=== PATIENT | male | born 1935 | race Caucasian/White ===

== ENCOUNTER 2016-12-19 08:56 | Observation (INO) | payer MEDICARE, OTHER, MEDICAID ==
[2016-12-19] MEDS ORDERED: Nitroglycerin 0.4 MG Tab.SL ONE (09:14)
[2016-12-19] MEDS ORDERED: Aspirin 81 MG Tab.Chew ONE (09:14)
[2016-12-19] MEDS ORDERED: Aspirin 81 MG Tab.Chew PO ONE (09:23)
[2016-12-19] MEDS ORDERED: Nitroglycerin 2% Oint 1 GM UD Packet TOP ONE (09:23)
[2016-12-19] MEDS ORDERED: Nitroglycerin 0.4 MG Tab.SL SL ONE (09:23)
--- NOTE | 2016-12-19 09:44 | EDM.PDOC ---
Addendum entered and electronically signed by Karan Gonzales PA 12/19/16 10:20 : Please use ER note as admission H and P Original Note: ED HPI GENERAL MEDICAL PROBLEM - General Chief Complaint: Chest Pain Stated Complaint: chest pain Time Seen by Provider: 12/19/16 09:15 Source of Information: Reports: Patient History Limitations: Reports: No Limitations - History of Present Illness INITIAL COMMENTS - FREE TEXT/NARRATIVE: 81 yo WM presents to ER with 1 week history of episodic chest pain. Pt reports his pain is left sided without radiation with associated shortness of breath. Pt with PMH of COPD and IDDM. Pt denies any diaphoresis, dizziness or nausea/ vomiting. Pt reports improvement with his chest pain after administration of nitro. Pt uses supplemental oxygen at home at 2L and is currently having increased oxygen demand at 3L with SaO2 of 94% Duration: Week(s): (1), Intermittent, Waxing/Waning Location: Reports: Chest Quality: Reports: Ache Severity: Mild Improves with: Reports: None Worsens with: Reports: None Associated Symptoms: Reports: Chest Pain, Cough, Shortness of Breath. Denies: cough w sputum, Fever/Chills, Nausea/Vomiting - Related Data Allergies Allergy/AdvReac Type Severity Reaction Status Date / Time metformin Allergy Cannot Verified 12/19/16 09:42 Remember Home Meds: Home Meds Citalopram [Citalopram HBr] 5 mg PO DAILY 10/30/13 [History] Esomeprazole [NexIUM] 40 mg PO BID 10/30/13 [History] Lovastatin 20 mg PO DAILY 10/30/13 [History] Tiotropium [Spiriva Handihaler] 1 puff INH DAILY 10/30/13 [History] amLODIPine [Norvasc] 5 mg PO DAILY 10/30/13 [History] Aspirin [Halfprin] 81 mg PO DAILY 11/05/13 [History] Fluticasone/Salmeterol [Advair 250-50] 1 puff INH BID 11/05/13 [History] Hydrocodone/Acetaminophen [Hydrocodon-Acetaminophn 10-325] 2 tab PO DAILY [History] Magnesium Oxide 400 mg PO BID 11/05/13 [History] Acetaminophen 2 tab PO Q6H PRN 03/07/14 [History] Cetirizine HCl [Zyrtec] 10 mg PO DAILY 03/07/14 [History] Dimethicone/Gly/Petrolat/Water [Cetaphil Moisturizing Cream] 1 applic TOP TU [History] Eucalyptus/Menthol [Menthol Cough Drops] 1 lozenge PO Q1H PRN 03/07/14 [History] Lactobacillus Acidophilus [Probiotic] 1 each PO BID 03/07/14 [History] Loperamide HCl [Imodium A-D] 2 mg PO ASDIRECTED PRN 03/07/14 [History] Losartan Potassium 25 mg PO DAILY 03/07/14 [History] Pregabalin [Lyrica] 100 mg PO TID 03/07/14 [History] Triamcinolone Acetonide [Kenalog 0.1% Oint] 1 applic TOP BID 03/07/14 [History] Albuterol Sulfate [Albuterol Sulfate HFA] 2 puff INH Q4H PRN 09/26/14 [History] Psyllium Husk 1 tsp PO Q48H 09/26/14 [History] Acetaminophen [Tylenol] 650 mg PO BID 05/30/15 [History] Albuterol/Ipratropium [DuoNeb 3.0-0.5 MG/3 ML] 3 ml INH Q6HR PRN 05/30/15 [ History] Diclofenac Sodium [Voltaren 1% Gel] 1 applic TOP BID PRN 05/30/15 [History] Ondansetron [Zofran ODT] 4 mg PO Q6H PRN 05/30/15 [History] Polyethylene Glycol 3350 [Miralax] 17 gm PO DAILY PRN 05/30/15 [History] Fish Oil/[place]-3 Fatty Acids [Fish Oil 1,000 MG] 1 gram PO DAILY 06/02/15 [ History] Ferrous Sulfate 325 mg PO BIDMEALS #60 tablet 06/03/15 [Rx] Insulin Glarg,Human.Rec.Analog [LantUS Solostar] 30 units SUBCUT BID pen [Rx] Levofloxacin 750 mg PO DAILY #7 tablet 06/03/15 [Rx] Past Medical History Other Genitourinary History: diverticulitis Other Neuro History: dementia Social & Family History - Tobacco Use Smoking Status *Q: Former Smoker Years of Tobacco use: 42 Used Tobacco, but Quit: Yes Month Tobacco Last Used: 1998 Second Hand Smoke Exposure: No - Alcohol Use Days Per Week of Alcohol Use: 0 - Recreational Drug Use Recreational Drug Use: No ED ROS GENERAL - Review of Systems Review Of Systems: See Below Constitutional: Reports: No Symptoms HEENT: Reports: No Symptoms Respiratory: Reports: Shortness of Breath, Cough Cardiovascular: Reports: Chest Pain Endocrine: Reports: No Symptoms GI/Abdominal: Reports: No Symptoms : Reports: No Symptoms Musculoskeletal: Reports: No Symptoms Skin: Reports: No Symptoms Neurological: Reports: No Symptoms Psychiatric: Reports: No Symptoms Hematologic/Lymphatic: Reports: No Symptoms Immunologic: Reports: No Symptoms ED EXAM, GENERAL - Physical Exam Exam: See Below Exam Limited By: No Limitations General Appearance: Alert, WD/WN, No Apparent Distress Nose: Normal Inspection, Normal Mucosa, No Blood Throat/Mouth: Normal Inspection, Normal Lips, Normal Teeth, Normal Gums, Normal Oropharynx, Normal Voice, No Airway Compromise Head: Atraumatic, Normocephalic Neck: Normal Inspection, Supple, Non-Tender, Full Range of Motion Respiratory/Chest: No Respiratory Distress, Lungs Clear, Normal Breath Sounds, No Accessory Muscle Use, Chest Non-Tender Cardiovascular: Normal Peripheral Pulses, Regular Rate, Rhythm, No Edema, No Gallop, No JVD, No Murmur, No Rub GI/Abdominal: Normal Bowel Sounds, Soft, Non-Tender, No Organomegaly, No Distention, No Abnormal Bruit, No Mass Back Exam: Normal Inspection, Full Range of Motion, NT Extremities: Normal Inspection, Normal Range of Motion, Non-Tender, Normal Capillary Refill, No Pedal Edema Neurological: Alert, Oriented, CN II-XII Intact, Normal Cognition, Normal Gait, Normal Reflexes, No Motor/Sensory Deficits Psychiatric: Normal Affect, Normal Mood Skin Exam: Warm, Dry, Intact, Normal Color, No Rash Lymphatic: No Adenopathy EKG INTERPRETATION EKG Date: 12/19/16 Time: 09:09 Rhythm: NSR Rate (beats/min): 60 [place]: normal P-wave: present QRS: normal ST-T: normal QT: normal Comparison: NA - no prior EKG Course - Vital Signs Last Recorded V/S: Last Vital Signs Temp 36.5 C 12/19/16 09:34 Pulse 61 12/19/16 09:34 Resp 16 12/19/16 09:34 BP 137/55 L 12/19/16 09:50 Pulse Ox 91 L 12/19/16 09:34 - Orders/Labs/Meds Orders: Active Orders 24 hr Category Date Time Status Patient Status Manage Transfer [TRANSFER] Routine ADT 12/19/16 10:06 Ordered Patient Status [ADT] Routine ADT 12/19/16 10:07 Ordered Bedrest Bathroom Privileges [RC] ASDIRECTED Care 12/19/16 10:07 Active Blood Glucose Check, Bedside [RC] QIDACANDBED Care 12/19/16 10:07 Active Cardiac Monitoring [RC] . DIRECTED Care 12/19/16 10:06 Active Cardiac Monitoring [RC] CONTINUOUS Care 12/19/16 10:08 Active EKG Documentation Completion [RC] ASDIRECTED Care 12/19/16 09:24 Active Oxygen Therapy [RC] PRN Care 12/19/16 10:07 Active Peripheral IV Care [RC] . DIRECTED Care 12/19/16 10:09 Active Pulse Oximetry [RC] CONTINUOUS Care 12/19/16 10:08 Active RT Aerosol Therapy [RC] ASDIRECTED Care 12/19/16 10:09 Active VTE/DVT Education [RC] PER UNIT ROUTINE Care 12/19/16 10:07 Active Vital Signs [RC] Q4H Care 12/19/16 10:07 Active 2 Gram Sodium Diet [DIET] Diet 12/19/16 Lunch Active Chest 2V [CR] Stat Exams 12/19/16 09:23 Taken BASIC METABOLIC PANEL,BMP [CHEM] AM Lab 12/20/16 05:11 Ordered CBC WITH AUTO DIFF [HEME] AM Lab 12/20/16 05:11 Ordered MAGNESIUM [CHEM] AM Lab 12/20/16 05:11 Ordered TROPONIN I [CHEM] AM Lab 12/20/16 05:11 Ordered TROPONIN I [CHEM] Routine Lab 12/19/16 14:00 Ordered TROPONIN I [CHEM] Timed Lab 12/19/16 18:00 Ordered TROPONIN I [CHEM] Timed Lab 12/19/16 22:00 Ordered Acetaminophen [Tylenol] Med 12/19/16 10:11 Ordered DOSE mg PO Q6H PRN Albuterol/Ipratropium [DuoNeb 3.0-0.5 MG/3 ML] Med 12/19/16 10:07 Active 3 ml NEB Q4H PRN Aspirin [Ecotrin] Med 12/20/16 09:00 Active 325 mg PO DAILY Cetirizine [ZyrTEC] Med 12/20/16 09:00 Active 10 mg PO DAILY Nitroglycerin [Nitro-Bid 2%] Med 12/19/16 10:13 Active 1 gm TOP Q6H PRN Sodium Chloride 0.9% [Syrex Flush] Med 12/19/16 10:07 Active 5 ml FLUSH Q8HR PRN Peripheral IV Insertion Adult [OM.PC] Routine Oth 12/19/16 10:07 Ordered Resuscitation Status Routine Resus Stat 12/19/16 10:07 Ordered EKG 12 Lead [EK] Routine Ther 12/19/16 09:23 Ordered Medication Orders Acetaminophen (Tylenol) mg PO Q6H PRN PRN Reason: Pain Albuterol/Ipratropium (Duoneb 3.0-0.5 Mg/3 Ml) 3 ml NEB Q4H PRN PRN Reason: Shortness Of Breath/wheezing Aspirin (Ecotrin) 325 mg PO DAILY CAT Cetirizine HCl (Zyrtec) 10 mg PO DAILY CAT Nitroglycerin (Nitro-Bid 2%) 1 gm TOP Q6H PRN PRN Reason: Chest Pain Sodium Chloride (Syrex Flush) 5 ml FLUSH Q8HR PRN PRN Reason: Keep Vein Open Labs: Laboratory Tests 12/19/16 12/19/16 Range/Units 09:25 09:25 WBC 8.2 (5.0-10.0) 10^3/uL RBC 4.17 L (4.50-6.00) 10^6/uL Hgb 12.2 L (13.0-17.0) g/dL Hct 37.5 L (40.0-52.0) % MCV 90.0 (82.0-92.0) fL MCH 29.3 (27.0-31.0) pg MCHC 32.6 (32.0-36.0) g/dL RDW 14.6 H (11.5-14.5) % Plt Count 144 L (150-300) 10^3/uL MPV 9.7 (7.4-10.4) fL Neut % (Auto) 74.8 H (50.0-70.0) % Lymph % (Auto) 8.8 L (20.0-40.0) % [place] % (Auto) 9.0 H (2.0-8.0) % Eos % (Auto) 6.4 H (1.0-3.0) % Baso % (Auto) 1.0 (0.0-1.0) % Neut # (Auto) 6.2 (2.5-7.0) 10^3/uL Lymph # (Auto) 0.7 L (1.0-4.0) 10^3/uL [place] # (Auto) 0.7 (0.1-0.8) 10^3/uL Eos # (Auto) 0.5 H (0.1-0.3) 10^3/uL Baso # (Auto) 0.1 (0.0-0.1) 10^3/uL Sodium 140 (136-145) mmol/L Potassium 5.3 (3.3-5.3) mmol/L Chloride 103 (98-115) mmol/L Carbon Dioxide 27.6 (21.0-32.0) mmol/L BUN 31 H (6-25) mg/dL Creatinine 1.80 H (0.51-1.17) mg/dL Est Cr Clr Drug Dosing TNP Estimated GFR (MDRD) 37 mL/min Glucose 290 H (70-110) mg/dL Calcium 9.0 (8.7-10.3) mg/dL CK-MB (CK-2) 2.00 (0.00-4.30) ng/mL Troponin I < 0.04 (0.00-0.070) ng/mL Meds: Medications Generic Name Dose Route Start Last Admin Trade Name Freq PRN Reason Stop Dose Admin Acetaminophen mg 12/19/16 10:11 Tylenol PO Q6H PRN Pain Albuterol/Ipratropium 3 ml 12/19/16 10:07 Duoneb 3.0-0.5 Mg/3 Ml NEB Q4H PRN Shortness Of Breath/wheezing Aspirin 325 mg 12/20/16 09:00 Ecotrin PO DAILY CAT Cetirizine HCl 10 mg 12/20/16 09:00 Zyrtec PO DAILY CAT Nitroglycerin 1 gm 12/19/16 10:13 Nitro-Bid 2% TOP Q6H PRN Chest Pain Sodium Chloride 5 ml 12/19/16 10:07 Syrex Flush FLUSH Q8HR PRN Keep Vein Open Discontinued Medications Generic Name Dose Route Start Last Admin Trade Name lEmira PRN Reason Stop Dose Admin Aspirin Confirm 12/19/16 09:14 12/19/16 09:31 Aspirin Administered 12/19/16 09:15 Not Given Dose 324 mg .ROUTE .STK-MED ONE Aspirin 324 mg 12/19/16 09:23 12/19/16 09:28 Aspirin PO 12/19/16 09:24 324 mg ONETIME ONE Administration Nitroglycerin Confirm 12/19/16 09:14 12/19/16 09:15 Nitrostat Administered 12/19/16 09:15 0.4 mg Dose Administration 0.4 mg .ROUTE .STK-MED ONE Nitroglycerin 1 gm 12/19/16 09:23 12/19/16 09:31 Nitro-Bid 2% TOP 12/19/16 09:24 1 gm ONETIME ONE Administration Nitroglycerin 0.4 mg 12/19/16 09:23 12/19/16 09:31 Nitrostat SL 12/19/16 09:24 Not Given ONETIME ONE - Radiology Interpretation Free Text/Narrative:: CXR- NAD; elevated right hemidiaphram Departure - Departure Time of Disposition: 10:15 Disposition: Refer to Observation Condition: fair Clinical Impression: Chest pain Qualifiers: Chest pain type: unspecified Qualified Code(s): R07.9 - Chest pain, unspecified Referrals: Ghada Castañeda MD [Primary Care Provider] - - My Orders Last 24 Hours: My Active Orders 12/19/16 09:23 Chest 2V [CR] Stat EKG 12 Lead [EK] Routine 12/19/16 09:24 EKG Documentation Completion [RC] ASDIRECTED 12/19/16 10:06 Patient Status Manage Transfer [TRANSFER] Routine Cardiac Monitoring [RC] . DIRECTED 12/19/16 10:07 Patient Status [ADT] Routine Bedrest Bathroom Privileges [RC] ASDIRECTED Blood Glucose Check, Bedside [RC] QIDACANDBED Oxygen Therapy [RC] PRN VTE/DVT Education [RC] PER UNIT ROUTINE Vital Signs [RC] Q4H Albuterol/Ipratropium [DuoNeb 3.0-0.5 MG/3 ML] 3 ml NEB Q4H PRN Sodium Chloride 0.9% [Syrex Flush] 5 ml FLUSH Q8HR PRN Peripheral IV Insertion Adult [OM.PC] Routine Resuscitation Status Routine 12/19/16 10:08 Cardiac Monitoring [RC] CONTINUOUS Pulse Oximetry [RC] CONTINUOUS 12/19/16 10:09 Peripheral IV Care [RC] . DIRECTED RT Aerosol Therapy [RC] ASDIRECTED 12/19/16 10:11 Acetaminophen [Tylenol] DOSE mg PO Q6H PRN 12/19/16 10:13 Nitroglycerin [Nitro-Bid 2%] 1 gm TOP Q6H PRN 12/19/16 14:00 TROPONIN I [CHEM] Routine 12/19/16 18:00 TROPONIN I [CHEM] Timed 12/19/16 22:00 TROPONIN I [CHEM] Timed 12/19/16 Lunch 2 Gram Sodium Diet [DIET] 12/20/16 05:11 BASIC METABOLIC PANEL,BMP [CHEM] AM CBC WITH AUTO DIFF [HEME] AM MAGNESIUM [CHEM] AM TROPONIN I [CHEM] AM 12/20/16 09:00 Aspirin [Ecotrin] 325 mg PO DAILY Cetirizine [ZyrTEC] 10 mg PO DAILY - Assessment/Plan Last 24 Hours: My Active Orders 12/19/16 09:23 Chest 2V [CR] Stat EKG 12 Lead [EK] Routine 12/19/16 09:24 EKG Documentation Completion [RC] ASDIRECTED 12/19/16 10:06 Patient Status Manage Transfer [TRANSFER] Routine Cardiac Monitoring [RC] . DIRECTED 12/19/16 10:07 Patient Status [ADT] Routine Bedrest Bathroom Privileges [RC] ASDIRECTED Blood Glucose Check, Bedside [RC] QIDACANDBED Oxygen Therapy [RC] PRN VTE/DVT Education [RC] PER UNIT ROUTINE Vital Signs [RC] Q4H Albuterol/Ipratropium [DuoNeb 3.0-0.5 MG/3 ML] 3 ml NEB Q4H PRN Sodium Chloride 0.9% [Syrex Flush] 5 ml FLUSH Q8HR PRN Peripheral IV Insertion Adult [OM.PC] Routine Resuscitation Status Routine 12/19/16 10:08 Cardiac Monitoring [RC] CONTINUOUS Pulse Oximetry [RC] CONTINUOUS 12/19/16 10:09 Peripheral IV Care [RC] . DIRECTED RT Aerosol Therapy [RC] ASDIRECTED 12/19/16 10:11 Acetaminophen [Tylenol] DOSE mg PO Q6H PRN 12/19/16 10:13 Nitroglycerin [Nitro-Bid 2%] 1 gm TOP Q6H PRN 12/19/16 14:00 TROPONIN I [CHEM] Routine 12/19/16 18:00 TROPONIN I [CHEM] Timed 12/19/16 22:00 TROPONIN I [CHEM] Timed 12/19/16 Lunch 2 Gram Sodium Diet [DIET] 12/20/16 05:11 BASIC METABOLIC PANEL,BMP [CHEM] AM CBC WITH AUTO DIFF [HEME] AM MAGNESIUM [CHEM] AM TROPONIN I [CHEM] AM 12/20/16 09:00 Aspirin [Ecotrin] 325 mg PO DAILY Cetirizine [ZyrTEC] 10 mg PO DAILY Assessment:: 1. chest pain 2. hypoxia Plan: 1. admit for obs to Dr Redmond 2. rule out cardiac ischemia 3. nitro/ASA 4. trop I Q4 x 4 5. supportive care- attempt to [place] oxygen to 2L as tolerated
[2016-12-19] MEDS ORDERED: Albuterol/Ipratropium 3.0-0.5 MG/3 ML Neb Soln NEB PRN (10:07)
[2016-12-19] MEDS ORDERED: Sodium Chloride 0.9% 5 ML Syringe FLUSH PRN (10:07)
[2016-12-19 10:12] LABS: CHLORIDE,CL 103 mmol/L (98-115); SODIUM,NA 140 mmol/L (136-145)
[2016-12-19] MEDS ORDERED: Nitroglycerin 2% Oint 1 GM UD Packet TOP PRN (10:13)
[2016-12-19] MEDS ORDERED: Acetaminophen 325 MG Tab PO PRN (10:30)
[2016-12-19] MEDS ORDERED: Atropine 0.1 MG/ML 10 ML Syringe IVPUSH PRN (11:27)
[2016-12-19] MEDS ORDERED: Nitroglycerin 0.4 MG Tab.SL SL PRN (11:27)
[2016-12-19] MEDS ORDERED: EPINEPHrine 1:10,000 1 MG/10 ML Syringe IVPUSH PRN (11:27)
[2016-12-19] MEDS ORDERED: Lidocaine 2% 100 MG/5 ML Syringe IVPUSH PRN (11:27)
[2016-12-19] MEDS ORDERED: Triamcinolone Acetonide 0.1% Oint 15 GM Tube TOP PRN (16:25)
[2016-12-19] MEDS ORDERED: Menthol 7.6 MG Sugar Free Lozenge PO PRN (16:25)
[2016-12-19] MEDS ORDERED: Non-Formulary Medication 1 Each (Menthol [Biofreeze] 1 APPLIC) TOP PRN (16:25)
[2016-12-19] MEDS ORDERED: Bisacodyl 5 MG Tab PO PRN (16:25)
[2016-12-19] MEDS ORDERED: tiZANidine 4 MG Tab PO PRN (16:25)
[2016-12-19] MEDS ORDERED: Acetaminophen/HYDROcodone 325-10 MG Tab PO PRN (16:25)
[2016-12-19] MEDS ORDERED: Albuterol HFA 18 Gm Inhaler INH PRN (16:25)
[2016-12-19] MEDS ORDERED: Albuterol/Ipratropium 3.0-0.5 MG/3 ML Neb Soln INH PRN (17:00)
[2016-12-19] MEDS ORDERED: amLODIPine 5 MG Tab PO SCH (17:30)
[2016-12-19] MEDS ORDERED: Oxybutynin 5 MG Tab.ER PO SCH (17:30)
[2016-12-19] MEDS ORDERED: Aspirin 325 MG Tab.EC PO SCH (17:30)
[2016-12-19] MEDS ORDERED: Lisinopril 10 MG Tab PO SCH (17:30)
[2016-12-19] MEDS ORDERED: Allopurinol 100 MG Tab PO SCH (17:30)
[2016-12-19] MEDS ORDERED: Docusate Sodium 100 MG Cap PO SCH (17:30)
[2016-12-19] MEDS ORDERED: Citalopram 20 MG Tab PO SCH (17:30)
[2016-12-19] MEDS ORDERED: Finasteride 5 MG Tab PO SCH (17:30)
[2016-12-19] MEDS ORDERED: Aspirin 81 MG Tab.EC PO SCH (17:30)
[2016-12-19] MEDS ORDERED: Acetaminophen/HYDROcodone 325-10 MG Tab PO SCH (17:30)
[2016-12-19] MEDS ORDERED: Cetirizine 10 MG Tab PO SCH (17:30)
[2016-12-19] MEDS ORDERED: Tamsulosin 0.4 MG Cap.ER PO SCH (17:30)
[2016-12-19] MEDS ORDERED: Insulin Aspart 100 Units/ML 3 ML Pen SUBCUT SCH (18:00)
[2016-12-19] MEDS: Polyethylene Glycol 3350 Powder 17 GM Packet PO SCH (18:30)
[2016-12-19] MEDS: Ferrous Sulfate 325 MG Tab PO SCH (18:30)
[2016-12-19] MEDS: Insulin Aspart 100 Units/ML 3 ML Pen SUBCUT SCH (19:04)
[2016-12-19] MEDS ORDERED: ALPHA LIPOIC ACID 300 MG PO SCH (21:00)
[2016-12-19] MEDS ORDERED: Magnesium Oxide 500 MG Tab PO SCH (21:00)
[2016-12-19] MEDS ORDERED: Insulin Aspart 100 Units/ML 3 ML Pen SUBCUT PRN (21:00)
[2016-12-19] MEDS: Fluticasone/Salmeterol 250-50 MCG Inhalation Powder 14/Diskus INH SCH (21:12)
[2016-12-19] MEDS: B.Bifidum/B.Longum/L.Acidophilus/L.Rhamnosus (Probiotic) Cap PO SCH (21:13)
[2016-12-19] MEDS: Gabapentin 100 MG Cap PO SCH (21:13)
[2016-12-19] MEDS: levETIRAcetam 500 MG Tab PO SCH (21:18)
[2016-12-20 06:43] VITALS: BP 146/56
[2016-12-20] MEDS ORDERED: Esomeprazole 40 MG Cap PO SCH (07:00)
[2016-12-20] MEDS: Insulin Aspart 100 Units/ML 3 ML Pen SUBCUT SCH (07:19)
[2016-12-20] MEDS: Fluticasone/Salmeterol 250-50 MCG Inhalation Powder 14/Diskus INH SCH ×2 (07:48→10:03)
[2016-12-20 08:01] LABS: CHLORIDE,CL 104 mmol/L (98-115); SODIUM,NA 142 mmol/L (136-145)
[2016-12-20] MEDS: Polyethylene Glycol 3350 Powder 17 GM Packet PO SCH (08:33)
[2016-12-20] MEDS: Ferrous Sulfate 325 MG Tab PO SCH (08:33)
[2016-12-20] MEDS: Gabapentin 100 MG Cap PO SCH (08:34)
[2016-12-20] MEDS: B.Bifidum/B.Longum/L.Acidophilus/L.Rhamnosus (Probiotic) Cap PO SCH (08:34)
--- NOTE | 2016-12-20 08:38 | PCM.DCSUM1 ---
Discharge Summary - Hospital Course Free Text/Narrative:: Christopher is discharged today from an overnight observation stay to rule out cardiac etiology for chest pain he was having. It was across his entire chest with associated SOB and some hypoxia. He is oxygen dependent, typically on 2L via [place] but he was requiring 4L initially upon arrival. He had CXR, EKG and labs , all of which were OK. Chest pain was relieved with nitroglycerin and so he was admitted for observation. He has negative troponins x 4 and had no further chest pain while hospitalized. Oxygen has been weaned back down to his baseline of 2L. Of note, his potassium was slightly elevated on today's labs and so will recheck that in 3 days. He is on lisinopril but no potassium supplementation. K+ was normal on admission labs yesterday. Will continue to administer lisinopril and as indicated, recheck BMP in 3 days. No other adjustments were made to his medications. He desires to go back to the [place] today. - Discharge Data Discharge Date: 12/20/16 Discharge Disposition: DC/Tfer to SNF 03 Condition: Good - Discharge Diagnosis/Problem(s) (1) Chest pain SNOMED Code(s): 55954977 ICD Code: R07.9 - CHEST PAIN, UNSPECIFIED Status: Acute Current Visit: Yes Qualifiers: Chest pain type: unspecified Qualified Code(s): R07.9 - Chest pain, unspecified (2) Hypoxemia SNOMED Code(s): 058459707 ICD Code: R09.02 - HYPOXEMIA Status: Acute Priority: High Current Visit : No (3) Hypertension SNOMED Code(s): 93021036 ICD Code: I10 - ESSENTIAL (PRIMARY) HYPERTENSION Status: Acute Current Visit: Yes (4) CKD (chronic kidney disease) SNOMED Code(s): 664826834 ICD Code: N18.9 - CHRONIC KIDNEY DISEASE, UNSPECIFIED Status: Chronic Current Visit: Yes (5) Diabetes mellitus SNOMED Code(s): 43778464 ICD Code: E11.9 - TYPE 2 DIABETES MELLITUS WITHOUT COMPLICATIONS Status: Chronic Current Visit: No (6) COPD (chronic obstructive pulmonary disease) SNOMED Code(s): 43285250 ICD Code: J44.9 - CHRONIC OBSTRUCTIVE PULMONARY DISEASE, UNSPECIFIED Status : Chronic Current Visit: Yes - Patient Instructions Diet: Diabetic Diet Activity: As Tolerated - Discharge Plan Home Medications: Home Meds Citalopram [Citalopram HBr] 20 mg PO DAILY 10/30/13 [History] Esomeprazole [NexIUM] 40 mg PO DAILY 10/30/13 [History] Lovastatin 20 mg PO DAILY 10/30/13 [History] amLODIPine [Norvasc] 10 mg PO DAILY 10/30/13 [History] Aspirin [Halfprin] 81 mg PO DAILY 11/05/13 [History] Fluticasone/Salmeterol [Advair 250-50] 1 puff INH BID 11/05/13 [History] Hydrocodone/Acetaminophen [Hydrocodon-Acetaminophn 10-325] 2 tab PO DAILY [History] Magnesium Oxide 400 mg PO BID 11/05/13 [History] Acetaminophen 2 tab PO Q6H PRN 03/07/14 [History] Cetirizine HCl [Zyrtec] 10 mg PO DAILY 03/07/14 [History] Eucalyptus/Menthol [Menthol Cough Drops] 1 lozenge PO Q1H PRN 03/07/14 [History] Lactobacillus Acidophilus [Probiotic] 1 each PO BID 03/07/14 [History] Pregabalin [Lyrica] 100 mg PO TID 03/07/14 [History] Triamcinolone Acetonide [Kenalog 0.1% Oint] 1 applic TOP BID PRN 03/07/14 [ History] Albuterol Sulfate [Albuterol Sulfate HFA] 2 puff INH Q4H PRN 09/26/14 [History] Psyllium Husk 1 tsp PO Q48H 09/26/14 [History] Albuterol/Ipratropium [DuoNeb 3.0-0.5 MG/3 ML] 3 ml INH Q6HR PRN 05/30/15 [ History] Polyethylene Glycol 3350 [Miralax] 17 gm PO BID@0800,1800 05/30/15 [History] Fish Oil/[place]-3 Fatty Acids [Fish Oil 1,000 MG] 1 gram PO DAILY 06/02/15 [ History] Ferrous Sulfate 325 mg PO BIDMEALS #60 tablet 06/03/15 [Rx] Allopurinol [Zyloprim] 200 mg PO DAILY 12/19/16 [History] Alpha Lipoic Acid 300 mg PO TID 12/19/16 [History] Bisacodyl 10 mg PO DAILY PRN 12/19/16 [History] Docusate Sodium [Colace] 100 mg PO DAILY 12/19/16 [History] Finasteride 5 mg PO DAILY 12/19/16 [History] Hydrocodone/Acetaminophen [Hydrocodon-Acetaminophn 10-325] 1 tab PO BID PRN 11/30 [History] Insulin Aspart [NovoLOG] See Protocol SUBCUT BID 12/19/16 [History] Lisinopril 10 mg PO DAILY 12/19/16 [History] Menthol [Biofreeze] 1 applic TOP BID PRN 12/19/16 [History] Multivitamin [Multi-Vitamin Daily] 1 each PO DAILY 12/19/16 [History] Oxybutynin [Oxybutynin ER] 5 mg PO DAILY 12/19/16 [History] Ranitidine HCl 150 mg PO DAILY 12/19/16 [History] Tamsulosin [Flomax] 0.4 mg PO DAILY 12/19/16 [History] Tresiba Flextouch Pen 200u/Ml 96 units SUBCUT DAILY 12/19/16 [History] Urea [Urevaz] 20 percent TOP TID 12/19/16 [History] levETIRAcetam [Keppra] 500 mg PO BID 12/19/16 [History] tiZANidine HCl [Tizanidine HCl] 4 mg PO TID PRN 12/19/16 [History] Other Amb Orders: BASIC METABOLIC PANEL,BMP [CHEM] Time Frame: 3 Days, Facility: [facility], Location: [facility] Referrals: Ghada Castañeda MD [Primary Care Provider] - - General Info Date of Service: 12/20/16 Admission Dx/Problem (Free Text: Chest pain - Review of Systems Systems Review Comment: 10 point ROS obtained, all pertinent positives listed in summary, all other systems are negative. - Patient Data Vitals - Most Recent: Last Vital Signs Temp 97.6 F 12/20/16 06:41 Pulse 60 12/20/16 06:41 Resp 18 12/20/16 06:41 BP 146/56 H 12/20/16 06:41 Pulse Ox 96 12/20/16 06:41 Weight - Most Recent: 244 lb 3.2 oz I&O - Last 24 hours: Intake & Output 12/19/16 12/20/16 12/20/16 22:59 06:59 14:59 Intake Total 300 100 Output Total 500 Balance 300 -400 Lab Results - Last 24 hrs: Laboratory Results - last 24 hr 12/19/16 12/19/16 12/19/16 Range/Units 12:01 13:55 17:32 WBC (5.0-10.0) 10^3/uL RBC (4.50-6.00) 10^6/uL Hgb (13.0-17.0) g/dL Hct (40.0-52.0) % MCV (82.0-92.0) fL MCH (27.0-31.0) pg MCHC (32.0-36.0) g/dL RDW (11.5-14.5) % Plt Count (150-300) 10^3/uL MPV (7.4-10.4) fL Neut % (Auto) (50.0-70.0) % Lymph % (Auto) (20.0-40.0) % [place] % (Auto) (2.0-8.0) % Eos % (Auto) (1.0-3.0) % Baso % (Auto) (0.0-1.0) % Neut # (Auto) (2.5-7.0) 10^3/uL Lymph # (Auto) (1.0-4.0) 10^3/uL [place] # (Auto) (0.1-0.8) 10^3/uL Eos # (Auto) (0.1-0.3) 10^3/uL Baso # (Auto) (0.0-0.1) 10^3/uL Sodium (136-145) mmol/L Potassium (3.3-5.3) mmol/L Chloride (98-115) mmol/L Carbon Dioxide (21.0-32.0) mmol/L BUN (6-25) mg/dL Creatinine (0.51-1.17) mg/dL Est Cr Clr Drug Dosing mL/min Estimated GFR (MDRD) mL/min Glucose (70-110) mg/dL POC Glucose 195 H 180 H (74-106) mg/dl Calcium (8.7-10.3) mg/dL Magnesium (1.8-2.4) mg/dL Troponin I < 0.04 (0.00-0.070) ng/mL 12/19/16 12/19/16 12/19/16 Range/Units 17:50 19:54 21:40 WBC (5.0-10.0) 10^3/uL RBC (4.50-6.00) 10^6/uL Hgb (13.0-17.0) g/dL Hct (40.0-52.0) % MCV (82.0-92.0) fL MCH (27.0-31.0) pg MCHC (32.0-36.0) g/dL RDW (11.5-14.5) % Plt Count (150-300) 10^3/uL MPV (7.4-10.4) fL Neut % (Auto) (50.0-70.0) % Lymph % (Auto) (20.0-40.0) % [place] % (Auto) (2.0-8.0) % Eos % (Auto) (1.0-3.0) % Baso % (Auto) (0.0-1.0) % Neut # (Auto) (2.5-7.0) 10^3/uL Lymph # (Auto) (1.0-4.0) 10^3/uL [place] # (Auto) (0.1-0.8) 10^3/uL Eos # (Auto) (0.1-0.3) 10^3/uL Baso # (Auto) (0.0-0.1) 10^3/uL Sodium (136-145) mmol/L Potassium (3.3-5.3) mmol/L Chloride (98-115) mmol/L Carbon Dioxide (21.0-32.0) mmol/L BUN (6-25) mg/dL Creatinine (0.51-1.17) mg/dL Est Cr Clr Drug Dosing mL/min Estimated GFR (MDRD) mL/min Glucose (70-110) mg/dL POC Glucose 207 H (74-106) mg/dl Calcium (8.7-10.3) mg/dL Magnesium (1.8-2.4) mg/dL Troponin I < 0.04 < 0.04 (0.00-0.070) ng/mL 12/20/16 12/20/16 12/20/16 Range/Units 06:30 07:25 07:25 WBC 8.6 (5.0-10.0) 10^3/uL RBC 4.07 L (4.50-6.00) 10^6/uL Hgb 11.8 L (13.0-17.0) g/dL Hct 36.6 L (40.0-52.0) % MCV 89.8 (82.0-92.0) fL MCH 29.1 (27.0-31.0) pg MCHC 32.4 (32.0-36.0) g/dL RDW 14.5 (11.5-14.5) % Plt Count 143 L (150-300) 10^3/uL MPV 9.6 (7.4-10.4) fL Neut % (Auto) 71.1 H (50.0-70.0) % Lymph % (Auto) 11.5 L (20.0-40.0) % [place] % (Auto) 10.0 H (2.0-8.0) % Eos % (Auto) 6.7 H (1.0-3.0) % Baso % (Auto) 0.7 (0.0-1.0) % Neut # (Auto) 6.0 (2.5-7.0) 10^3/uL Lymph # (Auto) 1.0 (1.0-4.0) 10^3/uL [place] # (Auto) 0.9 H (0.1-0.8) 10^3/uL Eos # (Auto) 0.6 H (0.1-0.3) 10^3/uL Baso # (Auto) 0.1 (0.0-0.1) 10^3/uL Sodium 142 (136-145) mmol/L Potassium 5.5 H (3.3-5.3) mmol/L Chloride 104 (98-115) mmol/L Carbon Dioxide 29.1 (21.0-32.0) mmol/L BUN 30 H (6-25) mg/dL Creatinine 1.66 H (0.51-1.17) mg/dL Est Cr Clr Drug Dosing 25.52 mL/min Estimated GFR (MDRD) 40 mL/min Glucose 106 (70-110) mg/dL POC Glucose 104 (74-106) mg/dl Calcium 9.2 (8.7-10.3) mg/dL Magnesium 2.0 (1.8-2.4) mg/dL Troponin I < 0.04 (0.00-0.070) ng/mL Med Orders - Current: Current Medications Acetaminophen (Tylenol) 650 mg PO Q6H PRN PRN Reason: Pain Hydrocodone Bitart/Acetaminophen ([place] 325-10 Mg) 1 tab PO BID PRN PRN Reason: Pain (moderate 4-6) Hydrocodone Bitart/Acetaminophen ([place] 325-10 Mg) 2 tab PO DAILY [facility] Albuterol (Ventolin Hfa) 0 gm INH Q4H PRN PRN Reason: Shortness of Breath Albuterol/Ipratropium (Duoneb 3.0-0.5 Mg/3 Ml) 3 ml NEB Q4H PRN PRN Reason: Shortness Of Breath/wheezing Albuterol/Ipratropium (Duoneb 3.0-0.5 Mg/3 Ml) 3 ml INH Q6HRRT PRN PRN Reason: Shortness of Breath Allopurinol (Zyloprim) 200 mg PO DAILY [facility] Amlodipine Besylate (Norvasc) 10 mg PO DAILY [facility] Aspirin (Ecotrin) 325 mg PO DAILY [facility] Last Admin: 12/19/16 17:57 Dose: Not Given Aspirin (Halfprin) 81 mg PO DAILY [facility] Last Admin: 12/19/16 17:58 Dose: Not Given Atropine Sulfate (Atropine 0.1 Mg/Ml) 0 mg IVPUSH ASDIRECTED PRN PRN Reason: Heart Bisacodyl (Dulcolax) 10 mg PO DAILY PRN PRN Reason: Constipation Cetirizine HCl (Zyrtec) 10 mg PO DAILY [facility] Citalopram Hydrobromide (Celexa) 20 mg PO DAILY [facility] Docusate Sodium (Colace) 100 mg PO DAILY [facility] Epinephrine HCl (Epinephrine 1:10,000) 1 mg IVPUSH ASDIRECTED PRN PRN Reason: Heart Esomeprazole Magnesium (Nexium) 40 mg PO ACBREAKFAST [facility] Last Admin: 12/20/16 06:16 Dose: Not Given Ferrous Sulfate (Ferrous Sulfate) 325 mg PO BIDMEALS [facility] Last Admin: 12/19/16 18:30 Dose: 325 mg Finasteride (Proscar) 5 mg PO DAILY [facility] Fish Oil (Fish Oil) 1 gm PO DAILY [facility] Gabapentin (Neurontin) 100 mg PO TID [facility] Last Admin: 12/19/16 21:13 Dose: 100 mg Insulin Aspart (Novolog) 0 unit SUBCUT BID@0730,1730 [facility] PRN Reason: Protocol Last Admin: 12/20/16 07:19 Dose: Not Given Lactobacillus Acidophilus/Rhamnosus (Multi-Stormy Plus) 1 cap PO BID [facility] Last Admin: 12/19/16 21:13 Dose: 1 cap Levetiracetam (Keppra) 500 mg PO BID [facility] Last Admin: 12/19/16 21:18 Dose: 500 mg Lidocaine HCl (Xylocaine 2%) 0 mg IVPUSH ASDIRECTED PRN PRN Reason: Heart Lisinopril (Prinivil) 10 mg PO DAILY [facility] Lovastatin (Mevacor) 20 mg PO DAILY [facility] Magnesium Oxide (Magnesium Oxide) 500 mg PO BID@1200,2100 [facility] Last Admin: 12/19/16 21:13 Dose: 500 mg Menthol ([place] Sugar Free) 1 desiree PO Q1H PRN PRN Reason: Cough Multivitamins/Minerals (Centrum) 1 tab PO DAILY [facility] Nitroglycerin (Nitro-Bid 2%) 1 gm TOP Q6H PRN PRN Reason: Chest Pain Last Admin: 12/19/16 17:11 Dose: 1 gm Nitroglycerin (Nitrostat) 0.4 mg SL ASDIRECTED PRN PRN Reason: Heart Oxybutynin Chloride (Oxybutynin Er) 5 mg PO DAILY [facility] Ptom Tresiba- Insulin Degludec 200u/Ml Pen Injector 96 each SUBCUT DAILY [facility] Polyethylene Glycol (Miralax) 17 gm PO BID@0800,1800 [facility] Last Admin: 12/19/16 18:30 Dose: 17 gm Ranitidine HCl (Zantac) 150 mg PO DAILY [facility] Fluticasone/Salmeterol (Advair Diskus 250-50) 1 puff INH BID [facility] Last Admin: 12/20/16 07:48 Dose: 1 puff Sodium Chloride (Syrex Flush) 5 ml FLUSH Q8HR PRN PRN Reason: Keep Vein Open Tamsulosin HCl (Flomax) 0.4 mg PO DAILY [facility] Tizanidine HCl (Zanaflex) 4 mg PO TID PRN PRN Reason: Muscle Spasm Triamcinolone Acetonide (Triamcinolone Acetonide 0.1% Oint) 0 gm TOP BID PRN PRN Reason: Rash Urea (Urea 20% Crm) 0 gm TOP TID [facility] Last Admin: 12/19/16 21:13 Dose: Not Given Discontinued Medications Hydrocodone Bitart/Acetaminophen ([place] 325-10 Mg) 2 tab PO DAILY [facility] Last Admin: 12/19/16 18:34 Dose: Not Given Allopurinol (Zyloprim) 200 mg PO DAILY [facility] Last Admin: 12/19/16 18:36 Dose: Not Given Amlodipine Besylate (Norvasc) 10 mg PO DAILY [facility] Last Admin: 12/19/16 18:34 Dose: Not Given Aspirin (Aspirin) Confirm Administered Dose 324 mg .ROUTE .K-MED ONE Stop: 12/19/16 09:15 Last Admin: 12/19/16 09:31 Dose: Not Given Aspirin (Aspirin) 324 mg PO ONETIME ONE Stop: 12/19/16 09:24 Last Admin: 12/19/16 09:28 Dose: 324 mg Aspirin (Ecotrin) 325 mg PO DAILY [facility] Aspirin (Halfprin) 81 mg PO DAILY [facility] Cetirizine HCl (Zyrtec) 10 mg PO DAILY [facility] Last Admin: 12/19/16 18:36 Dose: Not Given Citalopram Hydrobromide (Celexa) 20 mg PO DAILY [facility] Last Admin: 12/19/16 18:33 Dose: Not Given Docusate Sodium (Colace) 100 mg PO DAILY [facility] Last Admin: 12/19/16 18:34 Dose: Not Given Finasteride (Proscar) 5 mg PO DAILY [facility] Last Admin: 12/19/16 18:35 Dose: Not Given Insulin Aspart (Novolog) 0 unit SUBCUT BID PRN; Protocol PRN Reason: hyperglycemia Insulin Aspart (Novolog) 0 unit SUBCUT BID [facility] PRN Reason: Protocol Last Admin: 12/19/16 19:07 Dose: Not Given Lisinopril (Prinivil) 10 mg PO DAILY [facility] Last Admin: 12/19/16 18:35 Dose: Not Given Nitroglycerin (Nitrostat) Confirm Administered Dose 0.4 mg .ROUTE .STK-MED ONE Stop: 12/19/16 09:15 Last Admin: 12/19/16 09:15 Dose: 0.4 mg Nitroglycerin (Nitro-Bid 2%) 1 gm TOP ONETIME ONE Stop: 12/19/16 09:24 Last Admin: 12/19/16 09:31 Dose: 1 gm Nitroglycerin (Nitrostat) 0.4 mg SL ONETIME ONE Stop: 12/19/16 09:24 Last Admin: 12/19/16 09:31 Dose: Not Given Oxybutynin Chloride (Oxybutynin Er) 5 mg PO DAILY [facility] Last Admin: 12/19/16 18:35 Dose: Not Given Ranitidine HCl (Zantac) 150 mg PO DAILY [facility] Last Admin: 12/19/16 18:36 Dose: Not Given Tamsulosin HCl (Flomax) 0.4 mg PO DAILY [facility] Last Admin: 12/19/16 18:34 Dose: Not Given - Exam Quality Assessment: Reports: supplemental oxygen General: Reports: alert, oriented, cooperative, no acute distress Lungs: Reports: Clear to auscultation, Normal respiratory effort Cardiovascular: Reports: Regular Rate, Regular Rhythm, No Murmurs Abdomen: Reports: bowel sounds present Extremities: Reports: no edema *Q Meaningful Use (DIS) - VTE *Q VTE Criteria *Q: - Stroke *Q Stroke Criteria *Q: - AMI *Q AMI Criteria *Q:
[2016-12-20] MEDS ORDERED: Finasteride 5 MG Tab PO SCH (09:00)
[2016-12-20] MEDS ORDERED: Fish Oil/Omega-3 Fatty Acids 1 Gm Cap PO SCH (09:00)
[2016-12-20] MEDS ORDERED: Cetirizine 10 MG Tab PO SCH (09:00)
[2016-12-20] MEDS ORDERED: Oxybutynin 5 MG Tab.ER PO SCH (09:00)
[2016-12-20] MEDS ORDERED: INSULIN DEGLUDEC SUBCUT SCH (09:00)
[2016-12-20] MEDS ORDERED: amLODIPine 5 MG Tab PO SCH (09:00)
[2016-12-20] MEDS ORDERED: Lisinopril 10 MG Tab PO SCH (09:00)
[2016-12-20] MEDS ORDERED: Tamsulosin 0.4 MG Cap.ER PO SCH (09:00)
[2016-12-20] MEDS ORDERED: Docusate Sodium 100 MG Cap PO SCH (09:00)
[2016-12-20] MEDS ORDERED: [UNRECOGNIZED DRUG - OTHER] SUBCUT SCH (09:00)
[2016-12-20] MEDS ORDERED: Acetaminophen/HYDROcodone 325-10 MG Tab PO SCH (09:00)
[2016-12-20] MEDS ORDERED: Citalopram 20 MG Tab PO SCH (09:00)
[2016-12-20] MEDS ORDERED: Aspirin 81 MG Tab.EC PO SCH (09:00)
[2016-12-20] MEDS ORDERED: Allopurinol 100 MG Tab PO SCH (09:00)
[2016-12-20] MEDS ORDERED: Multivitamins with Minerals/Iron/Folic Acid/Lycopene Tab PO SCH (09:00)
[2016-12-20] MEDS ORDERED: Aspirin 325 MG Tab.EC PO SCH (09:00)
[2016-12-20] MEDS: levETIRAcetam 500 MG Tab PO SCH (09:52)
== END 2016-12-20 10:17 ==
LOC: KA.ED 08:56 → KA.MS 10:07
PROVIDERS: ADMIT Physician Assistant Medical; ATTEND Internal Medicine
DX: R07.9 Chest pain, unspecified (principal); R09.02 Hypoxemia; I12.9 Hypertensive chronic kidney disease with stage 1 through stage 4 chronic kidney disease, or unspecified chronic kidney disease; E11.22 Type 2 diabetes mellitus with diabetic chronic kidney disease; N18.9 Chronic kidney disease, unspecified; J44.9 Chronic obstructive pulmonary disease, unspecified; Z79.82 Long term (current) use of aspirin; Z79.899 Other long term (current) drug therapy; Z79.4 Long term (current) use of insulin; Z88.8 Allergy status to other drugs, medicaments and biological substances; Z87.891 Personal history of nicotine dependence
CPT/HCPCS: 36415; 71020; 80048; 82553; 82962; 83735; 84484; 85025; 93005; 94640; 99285; A9270; G0378; J1815; 99220

== ENCOUNTER 2016-12-26 13:20 | Emergency (ER) | payer MEDICARE, OTHER, MEDICAID ==
--- NOTE | 2016-12-26 14:01 | EDM.PDOC ---
ED HPI GENERAL MEDICAL PROBLEM - General Chief Complaint: Neurological Problem Stated Complaint: ILL Time Seen by Provider: 12/26/16 13:39 Source of Information: Reports: Patient History Limitations: Reports: No Limitations - History of Present Illness INITIAL COMMENTS - FREE TEXT/NARRATIVE: [facility] and again this morning. He was lying in bed this morning so didn't fall but says he has had 4 seizures in the last month which is increasing since his first one in about October. He has seen a neurologist in [place] a few times for this. He isn't sure what medications he is taking just that it is "a handful". We were told that he saw his PCP, Dr. Urrutia, 3 days ago and had high potassium; she ordered kayexalate but he doesn't know if he is getting it or not. - Related Data Allergies Allergy/AdvReac Type Severity Reaction Status Date / Time metformin Allergy Cannot Verified 12/26/16 14:34 Remember Home Meds: Home Meds Citalopram [Citalopram HBr] 20 mg PO DAILY 10/30/13 [History] Esomeprazole [NexIUM] 40 mg PO DAILY 10/30/13 [History] Lovastatin 20 mg PO DAILY 10/30/13 [History] amLODIPine [Norvasc] 10 mg PO DAILY 10/30/13 [History] Aspirin [Halfprin] 81 mg PO DAILY 11/05/13 [History] Fluticasone/Salmeterol [Advair 250-50] 1 puff INH BID 11/05/13 [History] Hydrocodone/Acetaminophen [Hydrocodon-Acetaminophn 10-325] 2 tab PO DAILY [History] Magnesium Oxide 400 mg PO BID 11/05/13 [History] Acetaminophen 2 tab PO Q6H PRN 03/07/14 [History] Cetirizine HCl [Zyrtec] 10 mg PO DAILY 03/07/14 [History] Eucalyptus/Menthol [Menthol Cough Drops] 1 lozenge PO Q1H PRN 03/07/14 [History] Lactobacillus Acidophilus [Probiotic] 1 each PO BID 03/07/14 [History] Pregabalin [Lyrica] 100 mg PO TID 03/07/14 [History] Triamcinolone Acetonide [Kenalog 0.1% Oint] 1 applic TOP BID PRN 03/07/14 [ History] Albuterol Sulfate [Albuterol Sulfate HFA] 2 puff INH Q4H PRN 09/26/14 [History] Psyllium Husk 1 tsp PO Q48H 09/26/14 [History] Polyethylene Glycol 3350 [Miralax] 17 gm PO BID@0800,1800 05/30/15 [History] Fish Oil/[place]-3 Fatty Acids [Fish Oil 1,000 MG] 1 gram PO DAILY 06/02/15 [ History] Ferrous Sulfate 325 mg PO BIDMEALS #60 tablet 06/03/15 [Rx] Allopurinol [Zyloprim] 200 mg PO DAILY 12/19/16 [History] Alpha Lipoic Acid 300 mg PO TID 12/19/16 [History] Bisacodyl 10 mg PO DAILY PRN 12/19/16 [History] Docusate Sodium [Colace] 100 mg PO DAILY 12/19/16 [History] Finasteride 5 mg PO DAILY 12/19/16 [History] Hydrocodone/Acetaminophen [Hydrocodon-Acetaminophn 10-325] 1 tab PO BID PRN 11/30 [History] Insulin Aspart [NovoLOG] See Protocol SUBCUT BID 12/19/16 [History] Lisinopril 10 mg PO DAILY 12/19/16 [History] Menthol [Biofreeze] 1 applic TOP BID PRN 12/19/16 [History] Multivitamin [Multi-Vitamin Daily] 1 each PO DAILY 12/19/16 [History] Oxybutynin [Oxybutynin ER] 5 mg PO DAILY 12/19/16 [History] Ranitidine HCl 150 mg PO DAILY 12/19/16 [History] Tamsulosin [Flomax] 0.4 mg PO DAILY 12/19/16 [History] Tresiba Flextouch Pen 200u/Ml 96 units SUBCUT DAILY 12/19/16 [History] Urea [Urevaz] 20 percent TOP TID 12/19/16 [History] levETIRAcetam [Keppra] 500 mg PO BID 12/19/16 [History] tiZANidine HCl [Tizanidine HCl] 4 mg PO TID PRN 12/19/16 [History] Past Medical History HEENT History: Reports: Cataract Cardiovascular History: Reports: High Cholesterol, Hypertension, SOB on Exertion Respiratory History: Reports: COPD Other Respiratory History: 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 Gastrointestinal History: Reports: Chronic Constipation, GERD Genitourinary History: Reports: BPH Other Genitourinary History: diverticulitis Musculoskeletal History: Reports: Neck Pain, Chronic Other Neuro History: dementia Psychiatric History: Reports: Depression Endocrine/Metabolic History: Reports: Diabetes, Type II Dermatologic History: Reports: Eczema - Past Surgical History HEENT Surgical History: Reports: Cataract Surgery Social & Family History - Family History Family Medical History: Unobtainable - Tobacco Use Smoking Status *Q: Former Smoker Years of Tobacco use: 42 Used Tobacco, but Quit: Yes Month Tobacco Last Used: unknown Second Hand Smoke Exposure: No - Caffeine Use Caffeine Use: Reports: Coffee - Alcohol Use Days Per Week of Alcohol Use: 0 - Recreational Drug Use Recreational Drug Use: No ED ROS GENERAL - Review of Systems Review Of Systems: See Below Constitutional: Denies: Fever, Chills, Weakness HEENT: Denies: Vertigo, Vision Change Respiratory: Denies: Shortness of Breath, Cough Cardiovascular: Denies: Chest Pain, Syncope GI/Abdominal: Reports: Abdominal Pain (nothing new but chronic left sided pain that he isn't sure what it is.). Denies: Nausea, Vomiting : Denies: Dysuria, Flank Pain Musculoskeletal: Denies: Neck Pain, Shoulder Pain, Arm Pain Skin: Denies: Cyanosis, Jaundice, Mottled, Pallor, Diaphoresis Neurological: Reports: Seizure. Denies: Confusion, Dizziness, Headache, Syncope , Trouble Speaking, Change in Speech Psychiatric: Denies: Agitation, Anxiety, Confusion - Physical Exam Exam: See Below Exam Limited By: No Limitations General Appearance: Alert, WD/WN, No Apparent Distress Eye Exam: Bilateral Eye: EOMI, Normal Inspection (full visual lemons) Ears: Normal External Exam, Hearing Grossly Normal Nose: Normal Inspection, No Blood Throat/Mouth: Normal Inspection, Normal Lips, Normal Voice, No Airway Compromise Head Exam: Normocephalic, Facial Ecchymosis (left cheek from a fall a few days ago). No: Scalp Lacerations, Scalp Swelling, Scalp Abrasions, Scalp Ecchymosis , Scalp Hematoma, Facial Abrasions, Facial Lacerations, Facial Swelling Neck: Normal Inspection, Supple, Full Range of Motion Respiratory/Chest: No Respiratory Distress, Lungs Clear, Normal Breath Sounds, No Accessory Muscle Use Cardiovascular: No Murmur, Bradycardia (regular, sinus) GI/Abdominal: Soft, No Organomegaly, Tender (chronic on left). No: Guarding, Rigid Neuro Exam (Abbreviated): Alert, Oriented, CN II-XII Intact, No Motor/Sensory Deficits Back Exam: No: CVA Tenderness (L), CVA Tenderness (R) Extremities: Normal Range of Motion Psychiatric: Normal Affect, Normal Mood Skin Exam: Warm, Dry, Intact, Normal Color, No Rash Course - Vital Signs Last Recorded V/S: Last Vital Signs Temp 96.1 F 12/26/16 13:28 Pulse 58 L 12/26/16 13:28 Resp 22 H 12/26/16 13:28 BP 122/41 L 12/26/16 13:28 Pulse Ox 82 L 12/26/16 13:28 - Orders/Labs/Meds Orders: Active Orders 24 hr Category Date Time Status EKG Documentation Completion [RC] ASDIRECTED Care 12/26/16 13:55 Ordered BASIC METABOLIC PANEL,BMP [CHEM] Stat Lab 12/26/16 13:54 Ordered CBC WITH AUTO DIFF [HEME] Stat Lab 12/26/16 13:54 Ordered UA W/MICROSCOPIC [URIN] Stat Lab 12/26/16 13:54 Uncollected EKG 12 Lead [EK] Routine Ther 12/26/16 13:54 Ordered - Re-Assessments/Exams Free Text/Narrative Re-Assessment/Exam: 12/26/16 15:55 Patient stable throughout ER course. Discussed findings and treatment plan with him. We gave a dose of Kayexalate in ER prior to discharge since the orders from [facility]rrutia didn't get carried out at the [facility]. He will also get a dose there tomorrow that I ordered. I instructed pt to follow up with Dr. Urrutia in two days. His potassium and creatinine are still elevated but significantly improved from 3 days ago so I feel patient is fine to return to [facility] and follow up in clinic. Departure - Departure Time of Disposition: 15:32 Disposition: DC/Tfer to SNF 03 Condition: fair Clinical Impression: Hyperkalemia, Seizure disorder - Discharge Information Forms: ED Department Discharge Additional Instructions: 1. Follow up with Dr. Ghada O'yovana in two days for recheck or sooner if any worsening. 2. Take another dose of kayexalate at the group home tomorrow as directed to bring your potassium down. 3. Follow up with the neurologist as scheduled to further evaluate whether these are seizures or if he thinks it may be something else. 4. Return to ER as needed. - My Orders Last 24 Hours: My Active Orders 12/26/16 13:54 BASIC METABOLIC PANEL,BMP [CHEM] Stat CBC WITH AUTO DIFF [HEME] Stat UA W/MICROSCOPIC [URIN] Stat EKG 12 Lead [EK] Routine 12/26/16 13:55 EKG Documentation Completion [RC] ASDIRECTED - Assessment/Plan Last 24 Hours: My Active Orders 12/26/16 13:54 BASIC METABOLIC PANEL,BMP [CHEM] Stat CBC WITH AUTO DIFF [HEME] Stat UA W/MICROSCOPIC [URIN] Stat EKG 12 Lead [EK] Routine 12/26/16 13:55 EKG Documentation Completion [RC] ASDIRECTED
[2016-12-26 15:06] VITALS: BP 142/53
[2016-12-26] MEDS ORDERED: Sodium Polystyrene Sulfonate 15 GM/60 ML Susp 60 ML Bot PO ONE (15:14)
== END 2016-12-26 15:40 ==
LOC: KA.ED 13:20
DX: G40.909 Epilepsy, unspecified, not intractable, without status epilepticus (principal); E87.5 Hyperkalemia; E78.00 Pure hypercholesterolemia, unspecified; I10 Essential (primary) hypertension; J44.9 Chronic obstructive pulmonary disease, unspecified; K21.9 Gastro-esophageal reflux disease without esophagitis; F32.9 Major depressive disorder, single episode, unspecified; E11.9 Type 2 diabetes mellitus without complications; Z98.49 Cataract extraction status, unspecified eye; Z87.891 Personal history of nicotine dependence; Z88.8 Allergy status to other drugs, medicaments and biological substances; Z79.82 Long term (current) use of aspirin; Z79.4 Long term (current) use of insulin; Z79.899 Other long term (current) drug therapy
CPT/HCPCS: 80048; 85025; 93005; 99285; A9270; 99283

== ENCOUNTER 2017-03-31 17:40 | Emergency (ER) | payer MEDICARE, OTHER, MEDICAID ==
[~2017-03-31 17:40] MED LIST: Sodium Chloride 0.9% 1,000 ML IV ONE
[2017-03-31 18:09] VITALS: BP 134/49
--- NOTE | 2017-03-31 18:47 | EDM.PDOC ---
ED HPI GENERAL MEDICAL PROBLEM - General Chief Complaint: Genitourinary Problem Stated Complaint: NEEDS A CT Time Seen by Provider: 03/31/17 18:36 Source of Information: Reports: Patient History Limitations: Reports: No Limitations - History of Present Illness INITIAL COMMENTS - FREE TEXT/NARRATIVE: PT SENT BY DR SON FOR CT EVALUATION OF BLADDER MASS. HAD LAB WORK IN CLINIC TODAY WITH BUN 40 AND CREATININE 2.02, GFR 32. CURRENTLY ON CIPRO FOR UTI. WILL OBTAIN UA, CULTURE, CT AND EVALUATE. HAD RENAL ULTRASOUND 03/27/2017 WHICH SHOWS SIMPLE CYSTS BUT INCOMPLETELY CHARACTERIZED AND WITHOUT CLEARLY CONCERNING FEATURES. PT STATES HE HAS INTERMITTENT URINARY RETENTION AND FEELS LIKE HE DOSEN'T COMPLETELY EMPTY BLADDER BUT DENIES FEVER, ABD PAIN, BLOOD IN URINE, TESTICULAR PAIN, FLANK PAIN, OR N/V. Onset: Gradual Duration: Other (DENIES ANY PAIN) Improves with: Reports: None Worsens with: Reports: None Associated Symptoms: Reports: No Other Symptoms - Related Data Allergies Allergy/AdvReac Type Severity Reaction Status Date / Time metformin Allergy Cannot Verified 03/31/17 18:09 Remember Home Meds: Home Meds Citalopram [Citalopram HBr] 20 mg PO DAILY 10/30/13 [History] Esomeprazole [NexIUM] 20 mg PO DAILY 10/30/13 [History] Lovastatin 20 mg PO DAILY 10/30/13 [History] amLODIPine [Norvasc] 10 mg PO DAILY 10/30/13 [History] Aspirin [Halfprin] 81 mg PO DAILY 11/05/13 [History] Fluticasone/Salmeterol [Advair 250-50] 1 puff INH BID 11/05/13 [History] Hydrocodone/Acetaminophen [Hydrocodon-Acetaminophn 10-325] 2 tab PO DAILY [History] Magnesium Oxide 400 mg PO BID 11/05/13 [History] Acetaminophen 2 tab PO Q6H PRN 03/07/14 [History] Cetirizine HCl [Zyrtec] 5 mg PO DAILY 03/07/14 [History] Eucalyptus/Menthol [Menthol Cough Drops] 1 lozenge PO Q1H PRN 03/07/14 [History] Lactobacillus Acidophilus [Probiotic] 1 each PO BID 03/07/14 [History] Pregabalin [Lyrica] 75 mg PO BID 03/07/14 [History] Triamcinolone Acetonide [Kenalog 0.1% Oint] 1 applic TOP BID PRN 03/07/14 [ History] Albuterol Sulfate [Albuterol Sulfate HFA] 2 puff INH Q4H PRN 09/26/14 [History] Psyllium Husk 1 tsp PO DAILY 09/26/14 [History] Polyethylene Glycol 3350 [Miralax] 17 gm PO BID@0800,1800 05/30/15 [History] Fish Oil/[place]-3 Fatty Acids [Fish Oil 1,000 MG] 1 gram PO DAILY 06/02/15 [ History] Ferrous Sulfate 325 mg PO BIDMEALS #60 tablet 06/03/15 [Rx] Allopurinol [Zyloprim] 200 mg PO DAILY 12/19/16 [History] Alpha Lipoic Acid 300 mg PO TID 12/19/16 [History] Bisacodyl 10 mg PO DAILY PRN 12/19/16 [History] Docusate Sodium [Colace] 100 mg PO DAILY 12/19/16 [History] Finasteride 5 mg PO DAILY 12/19/16 [History] Hydrocodone/Acetaminophen [Hydrocodon-Acetaminophn 10-325] 1 tab PO BID PRN 11/30 [History] Insulin Aspart [NovoLOG] See Protocol SUBCUT BID 12/19/16 [History] Menthol [Biofreeze] 1 applic TOP BID PRN 12/19/16 [History] Multivitamin [Multi-Vitamin Daily] 1 each PO DAILY 12/19/16 [History] Ranitidine HCl 150 mg PO DAILY 12/19/16 [History] Tamsulosin [Flomax] 0.4 mg PO DAILY 12/19/16 [History] Tresiba Flextouch Pen 200u/Ml 100 units SUBCUT DAILY 12/19/16 [History] levETIRAcetam [Keppra] 750 mg PO BID 12/19/16 [History] Past Medical History HEENT History: Reports: Cataract Cardiovascular History: Reports: High Cholesterol, Hypertension, SOB on Exertion Respiratory History: Reports: COPD Other Respiratory History: 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 Gastrointestinal History: Reports: Chronic Constipation, GERD Other Gastrointestinal History: DIVERTICULITIS Genitourinary History: Reports: BPH Other Genitourinary History: diverticulitis Musculoskeletal History: Reports: Neck Pain, Chronic Neurological History: Reports: Seizure Other Neuro History: dementia Psychiatric History: Reports: Depression Endocrine/Metabolic History: Reports: Diabetes, Type II Dermatologic History: Reports: Eczema Other Dermatologic History: DERMITITIS - Past Surgical History HEENT Surgical History: Reports: Cataract Surgery Social & Family History - Family History Family Medical History: Unobtainable - Tobacco Use Smoking Status *Q: Former Smoker Years of Tobacco use: 42 Used Tobacco, but Quit: Yes Month Tobacco Last Used: unknown Second Hand Smoke Exposure: No - Caffeine Use Caffeine Use: Reports: Coffee - Alcohol Use Days Per Week of Alcohol Use: 0 - Recreational Drug Use Recreational Drug Use: No ED ROS GENERAL - Review of Systems Review Of Systems: ROS reveals no pertinent complaints other than HPI. Constitutional: Reports: No Symptoms HEENT: Reports: No Symptoms Respiratory: Reports: No Symptoms Cardiovascular: Reports: No Symptoms Endocrine: Reports: No Symptoms GI/Abdominal: Reports: No Symptoms : Reports: Urinary Retention Musculoskeletal: Reports: No Symptoms Skin: Reports: No Symptoms Neurological: Reports: No Symptoms Psychiatric: Reports: No Symptoms Hematologic/Lymphatic: Reports: No Symptoms Immunologic: Reports: No Symptoms ED EXAM, RENAL/ - Physical Exam Exam: See Below Exam Limited By: No Limitations General Appearance: Alert, WD/WN, No Apparent Distress Throat/Mouth: Normal Inspection, Normal Oropharynx, No Airway Compromise Head: Atraumatic, Normocephalic Respiratory/Chest: No Respiratory Distress, Lungs Clear, Normal Breath Sounds, No Accessory Muscle Use, Chest Non-Tender Cardiovascular: Regular Rate, Rhythm, No Murmur GI/Abdominal: Normal Bowel Sounds, Soft, Non-Tender (Male) Exam: No Hernia, Normal Inspection Back Exam: Normal Inspection. No: CVA Tenderness (L), CVA Tenderness (R) Extremities: Normal Inspection Neurological: Alert, Oriented, Normal Cognition Psychiatric: Normal Affect, Normal Mood Skin Exam: Warm, Dry, Intact, Normal Color, No Rash Lymphatic: No Adenopathy Course - Vital Signs Last Recorded V/S: Last Vital Signs Temp 97.3 F 03/31/17 17:47 Pulse 61 03/31/17 17:47 Resp 24 H 03/31/17 17:47 BP 134/49 L 03/31/17 17:47 Pulse Ox 84 L 03/31/17 17:47 - Orders/Labs/Meds Orders: Active Orders 24 hr Category Date Time Status Abdomen Pelvis wo Cont [CT] Routine Exams 03/31/17 Ordered CULTURE URINE [RM] Stat Lab 03/31/17 18:36 Uncollected UA W/MICROSCOPIC [URIN] Stat Lab 03/31/17 18:36 Uncollected - Radiology Interpretation Free Text/Narrative:: ct abd/pelvis without contrast shows no bladder mass and consistent with us for kidney cysts - Re-Assessments/Exams Free Text/Narrative Re-Assessment/Exam: 03/31/17 19:14 PT AFEBRILE, NONTOXIC APPEARING, VSS. UNABLE TO OBTAIN UA EITHER THROUGH VOIDING OR URINARY CATH INSERTION 03/31/17 19:15 Departure - Departure Time of Disposition: 19:15 Disposition: Home, Self-Care 01 Condition: Good Clinical Impression: Chronic kidney disease Qualifiers: Chronic kidney disease stage: unspecified stage Qualified Code(s): N18.9 - Chronic kidney disease, unspecified - Discharge Information Instructions: Chronic Kidney Disease Referrals: Ghada Castañeda MD [Primary Care Provider] - Additional Instructions: FOLLOW UP WITH NEPHROLOGY SCHEDULED - My Orders Last 24 Hours: My Active Orders 03/31/17 Abdomen Pelvis wo Cont [CT] Routine 03/31/17 18:36 CULTURE URINE [RM] Stat UA W/MICROSCOPIC [URIN] Stat - Assessment/Plan Last 24 Hours: My Active Orders 03/31/17 Abdomen Pelvis wo Cont [CT] Routine 03/31/17 18:36 CULTURE URINE [RM] Stat UA W/MICROSCOPIC [URIN] Stat Assessment:: urinary retention Plan: f/u with nephrology
== END 2017-03-31 19:30 | disposition home or self-care (01) ==
LOC: KA.ED 17:40
DX: Z88.8 Allergy status to other drugs, medicaments and biological substances (principal); Z79.899 Other long term (current) drug therapy; Z79.82 Long term (current) use of aspirin; Z79.4 Long term (current) use of insulin
CPT/HCPCS: 74176; 96360; 99285; J7030; 99284

== ENCOUNTER 2017-04-23 11:56 | Emergency (ER) | payer MEDICARE, OTHER, MEDICAID ==
[2017-04-23 12:07] VITALS: BP 135/67
--- NOTE | 2017-04-23 12:30 | EDM.PDOC ---
ED HPI GENERAL MEDICAL PROBLEM - General Chief Complaint: Neurological Problem Stated Complaint: CONFUSION, S/P FALL Time Seen by Provider: 04/23/17 12:13 Source of Information: Reports: Patient, [facility] Records History Limitations: Reports: No Limitations - History of Present Illness INITIAL COMMENTS - FREE TEXT/NARRATIVE: Patient brought from [place] with drowsiness, forehead laceration and left eyelid and cheek hematoma after falling 28 hours ago at the [facility]. The laceration was treated with steri-strips which are still in place, with good approximation. Patient is responsive and replies to questions but is quite drowsy and I have to repeat or gently squeeze his shoulder to get a response at times. He states he does have some neck pain but no headache. He denies LOC at the fall. He has some drooping of left upper lip which he says is chronic. - Related Data Allergies Allergy/AdvReac Type Severity Reaction Status Date / Time metformin Allergy Cannot Verified 04/23/17 12:07 Remember Home Meds: Home Meds Citalopram [Citalopram HBr] 20 mg PO DAILY 10/30/13 [History] Esomeprazole [NexIUM] 20 mg PO DAILY 10/30/13 [History] Lovastatin 20 mg PO DAILY 10/30/13 [History] amLODIPine [Norvasc] 10 mg PO DAILY 10/30/13 [History] Aspirin [Halfprin] 81 mg PO DAILY 11/05/13 [History] Fluticasone/Salmeterol [Advair 250-50] 1 puff INH BID 11/05/13 [History] Hydrocodone/Acetaminophen [Hydrocodon-Acetaminophn 10-325] 2 tab PO DAILY [History] Magnesium Oxide 400 mg PO BID 11/05/13 [History] Acetaminophen 2 tab PO Q6H PRN 03/07/14 [History] Cetirizine HCl [Zyrtec] 5 mg PO DAILY 03/07/14 [History] Eucalyptus/Menthol [Menthol Cough Drops] 1 lozenge PO Q1H PRN 03/07/14 [History] Lactobacillus Acidophilus [Probiotic] 1 each PO BID 03/07/14 [History] Pregabalin [Lyrica] 75 mg PO BID 03/07/14 [History] Triamcinolone Acetonide [Kenalog 0.1% Oint] 1 applic TOP BID PRN 03/07/14 [ History] Albuterol Sulfate [Albuterol Sulfate HFA] 2 puff INH Q4H PRN 09/26/14 [History] Psyllium Husk 1 tsp PO DAILY 09/26/14 [History] Polyethylene Glycol 3350 [Miralax] 17 gm PO BID@0800,1800 05/30/15 [History] Fish Oil/[place]-3 Fatty Acids [Fish Oil 1,000 MG] 1 gram PO DAILY 06/02/15 [ History] Ferrous Sulfate 325 mg PO BIDMEALS #60 tablet 06/03/15 [Rx] Allopurinol [Zyloprim] 200 mg PO DAILY 12/19/16 [History] Alpha Lipoic Acid 300 mg PO TID 12/19/16 [History] Bisacodyl 10 mg PO DAILY PRN 12/19/16 [History] Docusate Sodium [Colace] 100 mg PO DAILY 12/19/16 [History] Finasteride 5 mg PO DAILY 12/19/16 [History] Hydrocodone/Acetaminophen [Hydrocodon-Acetaminophn 10-325] 1 tab PO BID PRN 11/30 [History] Insulin Aspart [NovoLOG] See Protocol SUBCUT BID 12/19/16 [History] Menthol [Biofreeze] 1 applic TOP BID PRN 12/19/16 [History] Multivitamin [Multi-Vitamin Daily] 1 each PO DAILY 12/19/16 [History] Ranitidine HCl 150 mg PO DAILY 12/19/16 [History] Tamsulosin [Flomax] 0.4 mg PO DAILY 12/19/16 [History] Tresiba Flextouch Pen 200u/Ml 100 units SUBCUT DAILY 12/19/16 [History] levETIRAcetam [Keppra] 750 mg PO BID 12/19/16 [History] Past Medical History HEENT History: Reports: Cataract Cardiovascular History: Reports: High Cholesterol, Hypertension, SOB on Exertion Respiratory History: Reports: COPD Other Respiratory History: 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 Gastrointestinal History: Reports: Chronic Constipation, GERD Other Gastrointestinal History: DIVERTICULITIS Genitourinary History: Reports: BPH Other Genitourinary History: diverticulitis Musculoskeletal History: Reports: Neck Pain, Chronic Neurological History: Reports: Seizure Other Neuro History: dementia Psychiatric History: Reports: Depression Endocrine/Metabolic History: Reports: Diabetes, Type II Hematologic History: Reports: Anemia Oncologic (Cancer) History: Reports: Colon Dermatologic History: Reports: Eczema Other Dermatologic History: DERMITITIS - Past Surgical History HEENT Surgical History: Reports: Cataract Surgery Social & Family History - Family History Family Medical History: Unobtainable - Tobacco Use Smoking Status *Q: Former Smoker Years of Tobacco use: 42 Used Tobacco, but Quit: Yes Month Tobacco Last Used: unknown Second Hand Smoke Exposure: No - Caffeine Use Caffeine Use: Reports: Coffee - Alcohol Use Days Per Week of Alcohol Use: 0 - Recreational Drug Use Recreational Drug Use: No ED ROS GENERAL - Review of Systems Review Of Systems: ROS reveals no pertinent complaints other than HPI. - Physical Exam Exam: See Below Exam Limited By: No Limitations General Appearance: WD/WN, No Apparent Distress, Lethargic (mildly) Eye Exam: Left Eye: Other (Large hematoma with ecchymosis of left upper and lower lids causing complete closure of eye; I pulled the eyelids open to check pupils.), Bilateral Eye: PERRL Ears: Normal External Exam, Hearing Grossly Normal Nose: Normal Inspection, No Blood Throat/Mouth: Normal Lips, Normal Voice, No Airway Compromise Head Exam: Facial Ecchymosis, Facial Swelling (left eyelids and cheek), Facial Tenderness. No: Scalp Lacerations, Scalp Swelling, Scalp Abrasions, Scalp Ecchymosis, Scalp Hematoma, Scalp Tenderness, Facial Abrasions, Facial Lacerations Neck: Supple, Tender Lateral (left paraspinal muscle) Respiratory/Chest: No Respiratory Distress, Lungs Clear, Normal Breath Sounds, No Accessory Muscle Use Cardiovascular: Regular Rate, Rhythm, No Murmur GI/Abdominal: Normal Bowel Sounds, Soft, Non-Tender, No Organomegaly Neuro Exam (Abbreviated): Oriented, Normal Cognition (grossly), No Motor/ Sensory Deficits, Abnormal Gait (patient doesn't normally ambulate independently but can transfer to stretcher with minimal assistance) Back Exam: Normal Inspection, Full Range of Motion Extremities: Normal Inspection, Normal Range of Motion, Non-Tender Psychiatric: Normal Affect, Normal Mood Skin Exam: Warm, Dry, No Rash, Other (laceration and ecchymosis as described above) Course - Vital Signs Last Recorded V/S: Last Vital Signs Temp 97.6 F 04/23/17 12:03 Pulse 59 L 04/23/17 12:03 Resp 20 04/23/17 12:03 BP 135/67 04/23/17 12:03 Pulse Ox 89 L 04/23/17 12:03 - Orders/Labs/Meds Orders: Active Orders 24 hr Category Date Time Status Cervical Spine wo Cont [CT] Stat Exams 04/23/17 12:23 Ordered Head wo Cont [CT] Stat Exams 04/23/17 12:23 Ordered Labs: Laboratory Tests 04/23/17 04/23/17 Range/Units 12:40 12:40 WBC 9.3 (5.0-10.0) 10^3/uL RBC 4.12 L (4.50-6.00) 10^6/uL Hgb 12.2 L (13.0-17.0) g/dL Hct 38.2 L (40.0-52.0) % MCV 92.7 H (82.0-92.0) fL MCH 29.6 (27.0-31.0) pg MCHC 31.9 L (32.0-36.0) g/dL RDW 14.8 H (11.5-14.5) % Plt Count 186 (150-300) 10^3/uL MPV 9.2 (7.4-10.4) fL Neut % (Auto) 75.3 H (50.0-70.0) % Lymph % (Auto) 10.1 L (20.0-40.0) % [place] % (Auto) 10.9 H (2.0-8.0) % Eos % (Auto) 3.1 H (1.0-3.0) % Baso % (Auto) 0.6 (0.0-1.0) % Neut # (Auto) 7.0 (2.5-7.0) 10^3/uL Lymph # (Auto) 0.9 L (1.0-4.0) 10^3/uL [place] # (Auto) 1.0 H (0.1-0.8) 10^3/uL Eos # (Auto) 0.3 (0.1-0.3) 10^3/uL Baso # (Auto) 0.1 (0.0-0.1) 10^3/uL Sodium 136 (136-145) mmol/L Potassium 4.8 (3.3-5.3) mmol/L Chloride 99 (98-115) mmol/L Carbon Dioxide 25.8 (21.0-32.0) mmol/L BUN 46 H (6-25) mg/dL Creatinine 2.07 H (0.51-1.17) mg/dL Est Cr Clr Drug Dosing 27.05 mL/min Estimated GFR (MDRD) 31 mL/min Glucose 211 H (70-110) mg/dL Calcium 9.3 (8.7-10.3) mg/dL - Re-Assessments/Exams Free Text/Narrative Re-Assessment/Exam: 04/23/17 14:11 Cts of head and c-spine are negative for fracture. Labs are normal except for the chronic renal disease. Patient discharged to [facility] in stable condition. Departure - Departure Time of Disposition: 14:06 Disposition: DC/Tfer to SNF 03 Condition: Fair Clinical Impression: Renal disease Fall Qualifiers: Encounter type: initial encounter Qualified Code(s): W19.XXXA - Unspecified fall, initial encounter Traumatic hematoma of face Qualifiers: Encounter type: initial encounter Qualified Code(s): S00.83XA - Contusion of other part of head, initial encounter Laceration of forehead without complication Qualifiers: Encounter type: initial encounter Qualified Code(s): S01.81XA - Laceration without foreign body of other part of head, initial encounter - Discharge Information Referrals: Ghada Castañeda MD [Primary Care Provider] - Forms: ED Department Discharge Additional Instructions: 1. Hopefully [facility] staff can take steps to reduce risk of falls. 2. Follow up with PCP as needed. - My Orders Last 24 Hours: My Active Orders 04/23/17 12:23 Cervical Spine wo Cont [CT] Stat Head wo Cont [CT] Stat - Assessment/Plan Last 24 Hours: My Active Orders 04/23/17 12:23 Cervical Spine wo Cont [CT] Stat Head wo Cont [CT] Stat
== END 2017-04-23 14:13 ==
LOC: KA.ED 11:56
DX: S01.81XA Laceration without foreign body of other part of head, initial encounter (principal); S00.83XA Contusion of other part of head, initial encounter; N28.9 Disorder of kidney and ureter, unspecified; Z87.891 Personal history of nicotine dependence; Z98.49 Cataract extraction status, unspecified eye; J44.9 Chronic obstructive pulmonary disease, unspecified; E11.9 Type 2 diabetes mellitus without complications; Z79.899 Other long term (current) drug therapy; Z79.82 Long term (current) use of aspirin; Z88.8 Allergy status to other drugs, medicaments and biological substances; W19.XXXA Unspecified fall, initial encounter
CPT/HCPCS: 36415; 70450; 72125; 80048; 85025; 99284

== ENCOUNTER 2017-05-01 09:56 | Emergency (ER) | payer MEDICARE, OTHER, MEDICAID ==
[2017-05-01 10:09] VITALS: BP 126/63
--- NOTE | 2017-05-01 10:38 | EDM.PDOC ---
ED HPI GENERAL MEDICAL PROBLEM - General Chief Complaint: Head Injury Stated Complaint: MULTIPLE FALLS Time Seen by Provider: 05/01/17 10:15 Source of Information: Reports: Patient, Prison Records History Limitations: Reports: No Limitations - History of Present Illness INITIAL COMMENTS - FREE TEXT/NARRATIVE: 81 YO WM presents to ER after fall from commode this am. Pt reports he was sitting on commode and reached for toilet paper falling to the ground. Pt reports pain to his nose with bleeding from a skin tear. No septal hematoma or epistaxsis noted. Pt denies any loss of consciousness, neck pain, dizziness or other injuries. Pt was seen in ER 10 days ago for a fall and was sent back to assisted living facility with fall precautions and PT recommendations. Onset: Today Onset Date: 05/01/17 Onset Time: 04:30 Location: Reports: Head, Face. Denies: Neck, Chest, Abdomen, Back, Upper Extremity, Left, Upper Extremity, Right, Lower Extremity, Left, Lower Extremity , Right Quality: Reports: Ache Severity: Mild Improves with: Reports: None Worsens with: Reports: None Associated Symptoms: Reports: No Other Symptoms. Denies: Confusion, Chest Pain , Nausea/Vomiting, Syncope, Weakness Treatments [employer]GER: Reports: Dressing(s) Left Face Pain Score (Numeric/FACES): 2 - Related Data Allergies Allergy/AdvReac Type Severity Reaction Status Date / Time metformin Allergy Cannot Verified 05/01/17 10:10 Remember Home Meds: Home Meds RX: Citalopram [Citalopram HBr] 20 mg PO DAILY 10/30/13 [History] RX: Esomeprazole [NexIUM] 20 mg PO DAILY 10/30/13 [History] RX: Lovastatin 20 mg PO DAILY 10/30/13 [History] RX: amLODIPine [Norvasc] 10 mg PO DAILY 10/30/13 [History] RX: Aspirin [Halfprin] 81 mg PO DAILY 11/05/13 [History] RX: Fluticasone/Salmeterol [Advair 250-50] 1 puff INH BID 11/05/13 [History] RX: Hydrocodone/Acetaminophen [Hydrocodon-Acetaminophn 10-325] 2 tab PO DAILY [History] RX: Magnesium Oxide 400 mg PO BID 11/05/13 [History] RX: Acetaminophen 650 mg PO Q6H PRN 03/07/14 [History] RX: Cetirizine HCl [Zyrtec] 5 mg PO DAILY 03/07/14 [History] RX: Eucalyptus/Menthol [Menthol Cough Drops] 1 lozenge PO Q1H PRN 03/07/14 [ History] RX: Lactobacillus Acidophilus [Probiotic] 1 each PO BID 03/07/14 [History] RX: Pregabalin [Lyrica] 75 mg PO BID 03/07/14 [History] RX: Triamcinolone Acetonide [Kenalog 0.1% Oint] 1 applic TOP BID PRN 03/07/14 [ History] RX: Albuterol Sulfate [Albuterol Sulfate HFA] 2 puff INH Q4H PRN 09/26/14 [ History] RX: Psyllium Husk 1 tsp PO DAILY 09/26/14 [History] RX: Polyethylene Glycol 3350 [Miralax] 17 gm PO BID@0800,1800 05/30/15 [History] RX: Fish Oil/[place]-3 Fatty Acids [Fish Oil 1,000 MG] 1 gram PO DAILY 06/02/15 [ History] RX: Ferrous Sulfate 325 mg PO BIDMEALS #60 tablet 06/03/15 [Rx] RX: Allopurinol [Zyloprim] 200 mg PO DAILY 12/19/16 [History] RX: Alpha Lipoic Acid 300 mg PO TID 12/19/16 [History] RX: Bisacodyl 10 mg PO DAILY PRN 12/19/16 [History] RX: Docusate Sodium [Colace] 100 mg PO DAILY 12/19/16 [History] RX: Finasteride 5 mg PO DAILY 12/19/16 [History] RX: Hydrocodone/Acetaminophen [Hydrocodon-Acetaminophn 10-325] 1 tab PO BID PRN 12/19/16 [History] RX: Insulin Aspart [NovoLOG] See Protocol SUBCUT BID 12/19/16 [History] RX: Menthol [Biofreeze] 1 applic TOP BID PRN 12/19/16 [History] RX: Multivitamin [Multi-Vitamin Daily] 1 each PO DAILY 12/19/16 [History] RX: Ranitidine HCl 150 mg PO DAILY 12/19/16 [History] RX: Tamsulosin [Flomax] 0.4 mg PO DAILY 12/19/16 [History] RX: levETIRAcetam [Keppra] 750 mg PO BID 12/19/16 [History] Tresiba Flextouch Pen 200u/Ml 100 units SUBCUT DAILY 12/19/16 [History] Amoxicillin/Potassium Clav [Augmentin 875-125 Tablet] 1 each PO BID #20 tablet 05/01/17 [Rx] Past Medical History HEENT History: Reports: Cataract Cardiovascular History: Reports: High Cholesterol, Hypertension, SOB on Exertion Respiratory History: Reports: COPD Other Respiratory History: 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 Gastrointestinal History: Reports: Chronic Constipation, GERD Other Gastrointestinal History: DIVERTICULITIS Genitourinary History: Reports: BPH Other Genitourinary History: diverticulitis Musculoskeletal History: Reports: Neck Pain, Chronic Neurological History: Reports: Seizure Other Neuro History: dementia Psychiatric History: Reports: Depression Endocrine/Metabolic History: Reports: Diabetes, Type II Hematologic History: Reports: Anemia Immunologic History: Reports: Immunosuppression Oncologic (Cancer) History: Reports: Colon Dermatologic History: Reports: Eczema Other Dermatologic History: DERMITITIS - Past Surgical History HEENT Surgical History: Reports: Cataract Surgery Social & Family History - Family History Family Medical History: Unobtainable - Tobacco Use Smoking Status *Q: Former Smoker Years of Tobacco use: 42 Packs/Tins Daily: 1 Used Tobacco, but Quit: Yes Month Tobacco Last Used: unknown Second Hand Smoke Exposure: No - Caffeine Use Caffeine Use: Reports: Coffee - Alcohol Use Days Per Week of Alcohol Use: 0 - Recreational Drug Use Recreational Drug Use: No ED ROS GENERAL - Review of Systems Review Of Systems: See Below Constitutional: Reports: No Symptoms HEENT: Reports: Nose Pain. Denies: Nosebleed, Vision Change Respiratory: Reports: No Symptoms Cardiovascular: Reports: No Symptoms Endocrine: Reports: No Symptoms GI/Abdominal: Reports: No Symptoms : Reports: No Symptoms Musculoskeletal: Reports: No Symptoms Skin: Reports: No Symptoms Neurological: Reports: No Symptoms Psychiatric: Reports: No Symptoms Hematologic/Lymphatic: Reports: No Symptoms Immunologic: Reports: No Symptoms ED EXAM, HEAD INJURY - Physical Exam Exam: See Below Exam Limited By: No Limitations General Appearance: Alert, WD/WN, No Apparent Distress Head: Normocephalic, Facial Abrasions, Facial Ecchymosis, Facial Swelling, Facial Tenderness Nexus Criteria: No: Posterior, Midline Cervical Tenderness, Evidence of Intoxication, Altered Level of Consciousness, Focal Neurological Deficit, Painful Distraction Injuries Ears: Normal External Exam, Normal Canal, Hearing Grossly Normal, Normal TMs Nose: Normal Inspection, Normal Mucousa, No Blood Throat/Mouth: Normal Inspection, Normal Lips, Normal Teeth, Normal Gums, Normal Oropharynx, Normal Voice, No Airway Compromise Neck: Non-Tender, Full Range of Motion, Normal Alignment, Normal Inspection Respiratory: No Respiratory Distress, Lungs Clear, Normal Breath Sounds, No Accessory Muscle Use, Chest Non-Tender Cardiovascular: Normal Peripheral Pulses, Regular Rate, Rhythm, No Edema, No Gallop, No JVD, No Murmur, No Rub GI/Abdominal Exam: Normal Bowel Sounds, Soft, Non-Tender, No Organomegaly, No Distention, No Abnormal Bruit, No Mass Back Exam: Full Range of Motion, Normal Inspection, NT Extremities: Normal Inspection, Normal Range of Motion, Non-Tender, No Pedal Edema, Normal Capillary Refill Neurologic: heading repairer II-XII nml As Tested, No Motor/Sensory Deficits, Alert, Normal Mood/Affect, Oriented x 3 Skin: Normal Color, Warm/Dry - Eliseo Coma Score Best Eye Response ([place]): (4) Open Spontaneously Best Verbal Response (Eliseo): (5) Oriented Best Motor Response (Eliseo): (6) Obeys Commands ED LACERATION/WOUND & HAYDEE PROC - Laceration/Wound Repair nose Lac/wound length in cm: 3 Appearance: Superficial Skin Prep: Chlorhexidine (Hibiciens), Saline Suture Size: other (dressing due to skin tear no laceration) Sterile Dressing Applied: Nurse Tetanus Status Addressed: Yes Complications: No Course - Vital Signs Last Recorded V/S: Last Vital Signs Temp 36.3 C 05/01/17 10:06 Pulse 58 L 05/01/17 10:06 Resp 20 05/01/17 10:06 BP 126/63 05/01/17 10:06 Pulse Ox 82 L 05/01/17 10:06 - Orders/Labs/Meds Orders: Active Orders 24 hr Category Date Time Status Head wo Cont [CT] Stat Exams 05/01/17 10:14 Ordered Max Facial Sinus wo Cont [CT] Stat Exams 05/01/17 10:14 Ordered Meds: Medications Discontinued Medications Generic Name Dose Route Start Last Admin Trade Name Freq PRN Reason Stop Dose Admin Neomycin/Polymyxin/Bacitracin Confirm 05/01/17 10:56 Triple Antibiotic Oint Administered 05/01/17 10:57 Dose 1 each .ROUTE .[facility] - Radiology Interpretation Free Text/Narrative:: CT head- NAD CT facial bones- nasal bone fracture Departure - Departure Time of Disposition: 11:05 Disposition: Home, Self-Care 01 Condition: Good Clinical Impression: Skin tear Contusion of face Qualifiers: Encounter type: initial encounter Qualified Code(s): S00.83XA - Contusion of other part of head, initial encounter Head injury Qualifiers: Encounter type: initial encounter Qualified Code(s): S09.90XA - Unspecified injury of head, initial encounter Fall Qualifiers: Encounter type: initial encounter Qualified Code(s): W19.XXXA - Unspecified fall, initial encounter Nasal bone fracture Qualifiers: Encounter type: initial encounter - Discharge Information Prescriptions: Amoxicillin/Potassium Clav [Augmentin 875-125 Tablet] 1 each PO BID #20 tablet Instructions: Head Injury, Adult, [id number], Facial or Scalp Contusion, Easy -to-Read, Nasal Fracture Referrals: Ghada Castañeda MD [Primary Care Provider] - Forms: ED Department Discharge - My Orders Last 24 Hours: My Active Orders 05/01/17 10:14 Head wo Cont [CT] Stat Max Facial Sinus wo Cont [CT] Stat - Assessment/Plan Last 24 Hours: My Active Orders 05/01/17 10:14 Head wo Cont [CT] Stat Max Facial Sinus wo Cont [CT] Stat Assessment:: 1. fall risk due to deconditioning 2. facial contusion 3. skin tear to nose 4. head injury 5. nasal bone fracture Plan: 1. return to assisted living facility 2. recommend physical therapy for strengthening and fall prevention 3. dressing to nose due to skin tear 4. follow up with PCP for further evaluation and treatment 5. augmentin 875mg pO BID x 10d for coverage of possible open nasal bone fracture
[2017-05-01] MEDS ORDERED: Bacitracin/Neomycin/Polymyxin B Oint 0.9 GM U/D Packet ONE (10:56)
[2017-05-01] MEDS ORDERED: Bacitracin/Neomycin/Polymyxin B Oint 0.9 GM U/D Packet TOP ONE (11:01)
== END 2017-05-01 11:50 | disposition home or self-care (01) ==
LOC: KA.ED 09:56
DX: S02.2XXA Fracture of nasal bones, initial encounter for closed fracture (principal); S00.83XA Contusion of other part of head, initial encounter; I10 Essential (primary) hypertension; E78.00 Pure hypercholesterolemia, unspecified; J44.9 Chronic obstructive pulmonary disease, unspecified; F32.9 Major depressive disorder, single episode, unspecified; E11.9 Type 2 diabetes mellitus without complications; Z86.2 Personal history of diseases of the blood and blood-forming organs and certain disorders involving the immune mechanism; Z87.891 Personal history of nicotine dependence; Z79.4 Long term (current) use of insulin; Z79.82 Long term (current) use of aspirin; Z79.899 Other long term (current) drug therapy; Z88.8 Allergy status to other drugs, medicaments and biological substances; W17.89XA Other fall from one level to another, initial encounter
CPT/HCPCS: 12013; 70450; 70486; 99283; 99284